=== PATIENT | male | born 1995 | race Caucasian/White ===

== ENCOUNTER 2016-06-22 05:44 | Emergency (ER) | payer BC ==
[~2016-06-22] VITALS: Ht 185.4 cm; Wt 109.3 kg
[2016-06-22 05:50] VITALS: Ht 185.4 cm; Wt 109.3 kg
[2016-06-22] MEDS ORDERED: NO ROUTINE MEDS (06:01)
--- NOTE | 2016-06-22 06:05 | NUR ---
REPORT REPORT RECEIVED ANDC ARE ASSUMED AT THIS TIME
--- NOTE | 2016-06-22 06:09 | ERPDOC ---
Departure Disposition Decision Date: Jun 22, 2016 Disposition Decision Time: 08:16 Disposition: 01 DISCHARGED HOME, SELF-CARE Impression Impression Impression: Primary Impression: Gastritis Gastritis type: unspecified gastritis Chronicity: acute Gastritis bleeding : without bleeding Qualified Codes: K29.00 - Acute gastritis without bleeding Severity: Moderate Condition: Improved Seen By: Physician only Patient Instructions: Gastritis (ED) Problems/Meds/Labs Reviewed?: Yes Medications reviewed and manag: Yes Additional Instructions: Recommend Prilosec OTC as directed on the box for at least 10 days May use ranitidine (Zantac) 150 mg up to 2 times a day We'll provide prescription for Carafate 1 g by mouth every before meals daily at bedtime 10 days If symptoms worsen fevers severe nausea and vomiting return to ER, otherwise follow up with primary medical physician if not improving by end of the week Departure Forms: Return to Work/School Permit Return to Work/School Date: Jun 24, 2016 Follow up care ordered?: Yes Mental Status: Alert, Oriented Scripts Sucralfate (Carafate) 1 Gm Tablet 1 G PO ACHS for 10 Days, TAB Take 1 tablet, by mouth, 4 times a day (Before EACH meal and at BEDTIME). Prov: KENDELL CASANOVA MD 06/22/16 HPI - Abdominal Pain General Chief Complaint: Abdominal Pain Stated Complaint: ABD PAIN Time Seen by Provider: 06:08 Source: patient History/Exam Limitations: no limitations HPI - Abdominal Pain Initial Comments Patient is a 20-year-old male, presents blurring for evaluation of epigastric/ right upper quadrant abdominal pain. Patient went to bed normally last night, woke up this morning with the midepigastric and right upper quadrant pain patient states the pain comes in waves, currently 5/10 although it ramped up as high as 8/10. Patient has nausea no emesis no fevers no chills. Patient decided present to the ER for evaluation no meds taken Occurred At: home Onset: Rapid Duration: 1-3 hrs Pain Scale: Now & Worst: 7/10 Location: RUQ, epigastric Activities at Onset: none Allergies: Coded Allergies: Penicillins (Verified Allergy, Intermediate, HIVES, 06/22/16) Past History Past Medical History Pt denies signifigant PMH Surgical History Denies Surgeries Family History Family PMH: NOT FOUND: alcohol abuse, crohn's Social History Smoking Status: Never smoker Substance Use Type: does not use Alcohol Intake: none Review of Systems Constitutional Constitutional: appetite decrease, DENIES: chills, dizziness, fever, weakness Eyes Vision: DENIES: double vision, loss of visual león ENMT Sinuses: DENIES: congestion, rhinorrhea Cardiovascular Cardiac: DENIES: chest pain, dyspnea on exertion Pulmonary Respiratory: DENIES: cough, dyspnea, sputum, tachypnea GI Upper Abdomen: nausea, pain, DENIES: vomiting Lower Abdomen: constipation, DENIES: diarrhea, pain General: DENIES: burning, frequency, urgency Musculoskeletal General: DENIES: cramps, pain, weakness Integumentary Skin: DENIES: color change, itching, rash Endocrine Endocrine: DENIES: heat/cold intolerance Hematologic/Lymphatic Hematologic/Lymphatic: DENIES: anemia Physical Exam General General Nourishment: well nourished, well developed General Body Habitus: well groomed Vitals and Pain First Documented Vital Signs Date Time Temp Pulse Resp B/P Pulse Ox O2 Delivery O2 Flow Rate FiO2 06/22/16 05:50 97.8 68 18 125/79 98 Room Air Weight: Kilograms: 109.300 Height (feet): 6 Height (inches): 1.00 Triage Pain Scale: RN VS reviewed by Provider: Yes Eyes (brief) Eyes Brief: found: EOMI ENMT (brief) ENMT Brief: FOUND: mucosa moist, normal dentition, NOT FOUND: nasal erythema, pharnyx erythema, tonsillar deviation Neck (brief) Neck: NOT FOUND: adenopathy, spasm, tenderness Respiratory (brief) Respiratory: FOUND: clear all león, equal bilaterally, NOT FOUND: rales, wheezes Cardiovascular (brief) Cardiac: FOUND: regular rate, regular rhythm Capillary Refill: <2 sec Abdomen Palpation: FOUND: soft, tender (mild epigastric tenderness with some right upper quadrant tenderness no Lisa's no rebound), NOT FOUND: Obturator sign, Psoas sign, hepatomegaly, involuntary guarding, rebound, splenomegaly, voluntary guarding Auscultation: FOUND: normoactive Rectal: FOUND: gross blood (very faint), sphincter normal tone, NOT FOUND: abscess, external hemorrhoids, fistula, internal hemorrhoids, thrombosed hemorrhoids Lymphatic (brief) Lymphatic Brief: NOT FOUND: adenopathy Musculoskeletal (brief) Musculoskeletal Brief: NOT FOUND: spasm, tenderness Integumentary (brief) Integumentary Brief: FOUND: dry, pink, warm, NOT FOUND: rash Neurologic (brief) Neurological Brief: FOUND: CN w/o gross def to obs, motor-no gross deficits, sensory-no gross deficits Psychiatric (brief) Psychiatric Brief: FOUND: alert, oriented Differential Diagnoses Considering: Appendicitis, Aortic Dissection, Biliary Colic, Bowel Obstruction , Cholecystitis, Constipation, Crohn's, Diverticulitis, Gastroenteritis, GERD, Hepatitis, Hernia, Ileus, Pancreatitis, Pyelonephritis, Renal Colic, Ulcerative Colitis, UTI, Volvulus Progress Results/Orders Orders Procedure Category Date Status Time Iv Lock (Ed Only) EDM 06/22/16 Transmitted 06:14 Nothing By Mouth (Ed EDM 06/22/16 Transmitted Only) 06:14 Cbc W/Auto LAB 06/22/16 Complete Diff-Reflex Manual 06:14 Cmp - Comprehensive LAB 06/22/16 Complete Metabolic 06:14 Lipase LAB 06/22/16 Complete 06:14 Ua, Dip Wreflex LAB 06/22/16 Complete Microsc & Outreach Associate 06:14 Normal Saline (Normal PHA 06/22/16 Complete Saline Iv) 06:15 Ondansetron Inj PHA 06/22/16 Complete (Zofran) 06:15 Hydromorphone PHA 06/22/16 Complete (Dilaudid) 06:15 Pantoprazole PHA 06/22/16 Complete (Protonix Iv) 06:15 G.I. Cocktail PHA 06/22/16 Complete (/Maalox/Lidocaine 07:15 Lab Results Laboratory Tests Test 06/22/16 06:23 06/22/16 07:48 White Blood Count 11.5T/MM3 Red Blood Count 5.04M/MM3 Hemoglobin 15.1GM/DL Hematocrit 44.9% Mean Corpuscular Volume 89.1UM3 Mean Corpuscular Hemoglobin 30.0UUG Mean Corpuscular Hemoglobin Concent 33.6GM/DL RDW Standard Deviation 42.1FL Platelet Count 220T/MM3 Mean Platelet Volume 10.4UM3 Immature Granulocyte % (Auto) 0.1% Neutrophils (%) (Auto) 66.6% Lymphocytes (%) (Auto) 23.6% Monocytes (%) (Auto) 7.7% Eosinophils (%) (Auto) 1.7% Basophils (%) (Auto) 0.3% Absolute Immature Granulocyte (auto 0.01T/MM3 Absolute Neutrophils (auto) 7.6T/MM3 Absolute Lymphocytes (auto) 2.7T/MM3 Absolute Monocytes (auto) 0.9T/MM3 Absolute Eosinophils (auto) 0.2T/MM3 Absolute Basophils (auto) 0.0T/MM3 Turbidity < 20 Sodium Level 145MEQ/L Potassium Level 4.1MEQ/L Chloride Level 107MEQ/L Carbon Dioxide Level 23MEQ/L Anion Gap 15MEQ/L Blood Urea Nitrogen 22.0MG/DL Creatinine 1.0MG/DL Glomerular Filtration Rate Calc 94 BUN/Creatinine Ratio 22RATIO Glucose Level 95MG/DL Calculated Osmolality 282MOSM/KG Calcium Level 9.3MG/DL Total Bilirubin 0.60MG/DL Icterus Index < 2 Aspartate Amino Transf (AST/SGOT) 24U/L Alanine Aminotransferase (ALT/SGPT) 39U/L Alkaline Phosphatase 100U/L Total Protein 7.5G/DL Albumin 4.2G/DL Globulin 3.3G/DL Albumin/Globulin Ratio 1.3RATIO Lipase 89U/L Chemistry Specimen Hemolysis < 15 Urine Collection Type Voided-not cc-midstr Urine Color Yellow Urine Turbidity Clear Urine pH 5.0 Urine Specific Fowler >=1.030 Urine Protein Negative Urine Glucose (UA) Negative Urine Ketones Negative Urine Blood Negative Urine Nitrite Negative Urine Bilirubin Negative Urine Urobilinogen 0.2EU/DL Urine Leukocyte Esterase Negative Urinalysis Comment Microscopic not ind. Medications Current ED Medications Sodium Chloride (Normal Saline IV) 1,000 ml @ 999 mls/hr Q1H1M ONCE IV Last administered on 06/22/16 06:42; Start 06/22/16 at 06:15; Stop 06/22/16 at 07:15 ; Status DC Ondansetron HCl (Zofran) 4 mg O ONCE IV Last administered on 06/22/16 06:43; Start 06/22/16 at 06:15; Stop 06/22/16 at 06:16; Status DC Hydromorphone HCl (Dilaudid) 0.5 mg O ONCE IV Last administered on 06/22/16 06:51; Start 06/22/16 at 06:15; Stop 06/22/16 at 06:16; Status DC Pantoprazole Sodium (Protonix Iv) 40 mg O ONCE IV Last administered on 06:46; Start 06/22/16 at 06:15; Stop 06/22/16 at 06:16; Status DC Pharmacy Profile Note (/Maalox/ Lidocaine Soln) 30 ml O ONCE PO Last administered on 06/22/16 07:20; Start 06/22/16 at 07:15; Stop 06/22/16 at 07:16 ; Status DC Progress Progress Patient with improvement of symptoms mostly after the GI cocktail, laboratories are noncontributory. We'll discharge patient home, Carafate, ranitidine, Prilosec follow-up if not improving if fevers or severe symptoms develop return to ER KENDELL CASANOVA MD Jun 22, 2016 06:08
[2016-06-22] MEDS ORDERED: PANTOPRAZOLE 40mg INJECTION IV ONE (06:15)
[2016-06-22] MEDS ORDERED: NORMAL SALINE 1,000 ML IV ONE (06:15)
[2016-06-22] MEDS ORDERED: ONDANSETRON 4mg/2ml INJECTION IV ONE (06:15)
[2016-06-22] MEDS ORDERED: HYDROMORPHONE 2mg/ml INJECTION IV ONE (06:15)
[2016-06-22 06:32] LABS: BASOPHILS % (AUTO) 0.3 % (0-2); EOSINOPHILS # (AUTO) 0.2 T/MM3 (0-0.5); EOSINOPHILS % (AUTO) 1.7 % (0-4); HCT - HEMATOCRIT 44.9 % (41-53); HGB - HEMOGLOBIN 15.1 GM/DL (13.5-17.5); IMMATURE GRANULOCYTE # (AUTO) 0.01 T/MM3 (0.00-0.03); IMMATURE GRANULOCYTE % (AUTO) 0.1 % (0.0-0.5); LYMPHOCYTES # (AUTO) 2.7 T/MM3 (1-4.8); LYMPHOCYTES % (AUTO) 23.6 % (23-45); MEAN CORPUSCULAR HGB CONC(MCHC 33.6 GM/DL (31-37); MEAN CORPUSCULAR VOLUME 89.1 UM3 (80-100); MEAN PLATELET VOLUME 10.4 UM3 (9.4-12.4); MONOCYTES # (AUTO) 0.9 T/MM3 (0-0.8); MONOCYTES % (AUTO) 7.7 % (0-9.0); NEUTROPHILS #(AUTO)-ABSOLUTE 7.6 T/MM3 (1.8-7.7); NEUTROPHILS % (AUTO) 66.6 % (33-66); RED BLOOD COUNT 5.04 M/MM3 (4.50-5.90); WBC - WHITE BLOOD COUNT 11.5 T/MM3 (4.5-11.0)
[2016-06-22 06:44] LABS: ALBUMIN 4.2 G/DL (3.5-5.0); ALBUMIN/GLOBULIN RATIO 1.3 RATIO (1.1-2.2); ALKALINE PHOSPHATASE 100 U/L (38-126); ALT (SGPT) 39 U/L (21-72); ANION GAP 15 MEQ/L (5-15); AST (SGOT) 24 U/L (17-59); BUN/CREATININE RATIO 22 RATIO (6-26); CALCIUM 9.3 MG/DL (8.4-10.2); CHLORIDE 107 MEQ/L (98-107); CO2 - CARBON DIOXIDE 23 MEQ/L (22-30); GLOMERULAR FILTRATION RATE 94; GLUCOSE 95 MG/DL (75-110); LIPASE 89 U/L (23-300); POTASSIUM 4.1 MEQ/L (3.6-5); SODIUM 145 MEQ/L (134-144); TOTAL PROTEIN 7.5 G/DL (6.3-8.2)
[2016-06-22] MEDS ORDERED: G.I. COCKTAIL 30ml PO ONE (07:15)
--- NOTE | 2016-06-22 07:22 | NUR ---
MEDICATION GI COCKTAIL ADMINISTERED
[2016-06-22 07:54] LABS: BLOOD, URINE NEGATIVE (NEGATIVE); COLOR,URINE YELLOW (YELLOW); LEUKOCYTE ESTERASE ,URINE NEGATIVE (NEGATIVE); NITRITE,URINE NEGATIVE (NEGATIVE); UROBILINOGEN,URINE 0.2 EU/DL (NORMAL)
--- NOTE | 2016-06-22 08:10 | NUR ---
COMFORT PT RATES PAIN 1/10 AFTER GI COCKTAIL
--- NOTE | 2016-06-22 08:13 | NUR ---
EXAM RECTAL EXAM WITH HEMOCCULT PER DR CASANOVA
[2016-06-22] MEDS ORDERED: SUCR1TAB20 PO (08:18)
--- NOTE | 2016-06-22 08:40 | NUR ---
IV IV DC'D WITH CATH INTACT
[2016-06-22 08:45] VITALS: BP 103/59; PULSE 48; RESP 16; TEMP 97.8; O2SAT 96
--- NOTE | 2016-06-22 08:45 | NUR ---
DISMISSAL DISMISSAL INSTRUCTIONS WITH RX FOR CARAFATE 1GM AND WORK NOTE. NO FURTHER QUESTIONS AT THIS TIME. PT LEFT DEPARTMENT AMBUALTORY IN NO DISTRESS
== END 2016-06-22 08:45 | disposition home or self-care (01) ==
LOC: ED 05:44
DX: K29.00 Acute gastritis without bleeding (principal)
CPT/HCPCS: 80053; 81003; 83690; 85025; 96361; 96374; 96375; 99284; C9113; J1170; J2405; J7030; J7999